=== PATIENT | male | born 1970 | race African-American/Black ===

== ENCOUNTER 2016-05-25 20:31 | Inpatient (IN) | payer OTHER ==
[~2016-05-25] VITALS: Ht 182.9 cm; Wt 108.9 kg
[~2016-05-25 20:31] MED LIST: KEFLEX500 MG PO; MOTRIN800 MG PO
[2016-05-25 21:28] LABS: HEMATOCRIT 43.5 % (38.0-50.0); MCHC 34.5 G/DL (30.0-36.0); MCV 92.8 FL (86-99); MEAN PLAT.VOLUME 9.1 uM^3 (9.0-12.4); PLATELET COUNT 272 K/uL (156-360); RBC DIS.WIDTH-CV 13.1 % (11.8-14.6); RBC DIS.WIDTH-SD 43.3 % (39-53); RED BLOOD COUNT 4.69 M/uL (4.00-5.50); WHITE BLOOD COUNT 8.9 K/uL (4.1-10.2)
[2016-05-25 21:57] LABS: CHLORIDE 105 mEq/L (99-109); POTASSIUM 3.9 mEq/L (3.7-5.4); SODIUM 140 mEq/L (136-147)
[2016-05-25 21:59] LABS: GLUCOSE 85 mg/dL (70-99)
[2016-05-25 22:00] LABS: ANION GAP 10 MEQ/L (2-14); TROP-I INTERPRETATION NEGATIVE; TROPONIN-I 0.21 ng/mL (0.0-0.30)
[2016-05-25 22:03] LABS: GFR ESTIMATE (CALCULATED) > 59 mL/min/
[2016-05-25 22:04] LABS: UREA NITROGEN (BUN) 14 mg/dL (9-23)
[2016-05-25 22:47] LABS: CREATINE KINASE 395 IU/L (1-294)
[2016-05-25] MEDS ORDERED: ASPIRIN325 MG PO (23:17)
[2016-05-25] MEDS ORDERED: ADVIL200 MG PO (23:18)
[2016-05-25] MEDS ORDERED: [UNRECOGNIZED DRUG - OTHER] PO (23:19)
[2016-05-26 01:18] VITALS: BP 125/74
[2016-05-26 04:40] VITALS: BP 126/77
[2016-05-26 06:44] LABS: INTER. NORMALIZED RATIO 1.1; PROTHROMBIN TIME 10.7 (9.2-11.2); PTT 30.2 (25-32)
[2016-05-26 06:46] LABS: HDL CHOLESTEROL 38 MG/DL (Desirable>=40); LDL CHOLESTEROL 74 mg/dL (Desirable<100); NON-HDL CHOLESTEROL 87 mg/dL (Desirable<160); TOTAL CHOLESTEROL 125 mg/dL (Desirable<200); TRIGLYCERIDES 66 MG/DL (Normal: <150)
[2016-05-26 07:03] LABS: TROP-I INTERPRETATION POSITIVE
[2016-05-26 07:05] LABS: TROPONIN-I 6.91 ng/mL (0.0-0.30)
[2016-05-26 07:25] LABS: Estimated Average Glucose 105 mg/dL (70-123); HEMOGLOBIN A1c (GLYCOHEMOGLOB) 5.3 % HGB (Below 5.7)
[2016-05-26 08:20] VITALS: BP 120/67
[2016-05-26 11:29] VITALS: BP 118/74
[2016-05-26 12:54] LABS: TROP-I INTERPRETATION POSITIVE
[2016-05-26 19:21] VITALS: BP 129/68
[2016-05-26 19:44] LABS: EOSINOPHIL (%) 0.3 % (0-5); HEMATOCRIT 39.9 % (38.0-50.0); IMMATURE GRANULOCYTE (%) 0.2 % (0.0-0.7); LYMPHOCYTE COUNT 2.2 K/uL (1.0-2.8); MCH 32.9 PG (29.0-34.0); MCHC 34.8 G/DL (30.0-36.0); MCV 94.3 FL (86-99); MEAN PLAT.VOLUME 9.6 uM^3 (9.0-12.4); MONOCYTE (%) 5.6 % (3-12); MONOCYTE COUNT 0.5 K/uL (0-0.8); PLATELET COUNT 248 K/uL (156-360); RBC DIS.WIDTH-CV 13.2 % (11.8-14.6); RBC DIS.WIDTH-SD 45.8 % (39-53); RED BLOOD COUNT 4.23 M/uL (4.00-5.50); WHITE BLOOD COUNT 8.7 K/uL (4.1-10.2)
[2016-05-26 23:05] VITALS: BP 120/78
[2016-05-27 03:47] VITALS: BP 110/55
[2016-05-27 06:54] LABS: EOSINOPHIL (%) 0.8 % (0-5); EOSINOPHIL COUNT 0.1 K/uL (0-0.3); HEMATOCRIT 39.8 % (38.0-50.0); IMMATURE GRANULOCYTE (%) 0.3 % (0.0-0.7); LYMPHOCYTE COUNT 3.2 K/uL (1.0-2.8); MCH 30.9 PG (29.0-34.0); MCHC 32.9 G/DL (30.0-36.0); MCV 93.9 FL (86-99); MEAN PLAT.VOLUME 9.7 uM^3 (9.0-12.4); MONOCYTE (%) 11.5 % (3-12); MONOCYTE COUNT 0.9 K/uL (0-0.8); NEUTROPHIL (%) 46.4 % (45-76); NEUTROPHIL COUNT 3.7 K/uL (1.8-6.4); PLATELET COUNT 259 K/uL (156-360); RBC DIS.WIDTH-CV 13.5 % (11.8-14.6); RBC DIS.WIDTH-SD 46.5 % (39-53); RED BLOOD COUNT 4.24 M/uL (4.00-5.50); WHITE BLOOD COUNT 7.9 K/uL (4.1-10.2)
[2016-05-27 07:00] VITALS: BP 110/85
[2016-05-27 07:30] LABS: ANION GAP 9 MEQ/L (2-14); CHLORIDE 106 MEQ/L (99-109); GFR ESTIMATE (CALCULATED) > 59 mL/min/; GLUCOSE 83 mg/dL (70-99); POTASSIUM 3.8 MEQ/L (3.7-5.4); SAMPLE HEMOLYSIS CHECK 0; SAMPLE ICTERIC CHECK 0; SAMPLE LIPEMIA CHECK 0; SODIUM 141 MEQ/L (136-147); UREA NITROGEN (BUN) 6 mg/dL (9-23)
[2016-05-27 12:21] VITALS: BP 132/87
[2016-05-27 20:12] VITALS: BP 112/59
[2016-05-27 22:24] VITALS: BP 110/56
[2016-05-28 03:51] VITALS: BP 127/69
[2016-05-28 07:52] VITALS: BP 116/66
[2016-05-28 11:16] VITALS: BP 117/58
[2016-05-28] MEDS ORDERED: ASPIR-LOW81 MG PO (16:23)
[2016-05-28] MEDS ORDERED: BRILINTA90 MG PO (16:23)
[2016-05-28] MEDS ORDERED: NITROSTAT0.4 MG SL (16:23)
[2016-05-28] MEDS ORDERED: METOPROLOL SUCC25 MG PO (16:23)
[2016-05-28] MEDS ORDERED: LISINOPRIL2.5 MG PO (16:23)
[2016-05-28] MEDS ORDERED: PRAVASTATIN SOD80 MG PO (16:23)
== END 2016-05-28 16:52 | disposition home or self-care (01) | DRG 251 ==
LOC: EME 20:31 → 5WEST 23:37 → EDOF 23:37 → 5WEST 05-26 01:05 → 4EAST 05-26 09:24 → 5WEST 05-26 09:24 → 4EAST 05-26 18:12
PROVIDERS: Internal Medicine Cardiovascular Disease; Physician Assistant Medical
DX: I21.4 Non-ST elevation (NSTEMI) myocardial infarction (principal); I25.10 Atherosclerotic heart disease of native coronary artery without angina pectoris; E11.9 Type 2 diabetes mellitus without complications; F17.290 Nicotine dependence, other tobacco product, uncomplicated; E66.9 Obesity, unspecified; Z68.32 Body mass index [BMI] 32.0-32.9, adult
CPT/HCPCS: 71020; 80048; 80061; 82550; 83036; 84484; 85025; 85027; 85347; 85379; 85610; 85730; 93005; 93306; 99281; 99285; C1725; C1757; C1760; C1769; C1887; C1894; G0378; J0153; J0461; J0690; J1644; J1650; J2250; J2270; J3010; J3246; J7030; J7040; J7050